=== PATIENT | female | born 1945 ===

== ENCOUNTER 2021-09-04 09:00 | Inpatient (IN) | payer OTHER ==
[~2021-09-04] VITALS: Ht 149.9 cm; Wt 66.7 kg
[2021-09-04] MEDS ORDERED: CRESTOR5 MG PO (10:55)
[2021-09-04] MEDS ORDERED: GLIPIZI PO (10:56)
[2021-09-04] MEDS ORDERED: JARDIANCE10 MG PO (10:56)
[2021-09-04] MEDS ORDERED: CARVEDILOL12.5 M1 PO (10:57)
[2021-09-04] MEDS ORDERED: VALSARTAN160 MG PO (10:57)
[2021-09-14] MEDS ORDERED: GLIPIZIDE ER2.5 MG PO (07:49)
[2021-09-14] MEDS ORDERED: MAXIMUM D3325 MCG (07:50)
[2021-09-14] MEDS ORDERED: AMLODIPINE BESYL5 MG (07:51)
[2021-09-15] MEDS ORDERED: ULTRAM50 MG PO (09:49)
== END 2021-09-15 11:21 | disposition home or self-care (01) | DRG 983 ==
LOC: SURH 09-07 09:00 → O/R 09-14 05:40 → SURG 09-14 05:40 → SURH 09-14 09:00 → SURG 09-14 11:17 → SURH 09-14 12:15 → SURG 09-15 11:21
PROVIDERS: ADMIT Surgery; ATTEND Surgery
PROC: 0QTS0ZZ Resection of Coccyx, Open Approach (ICD-10-PCS; principal; 2021-09-14 12:15)
DX: L72.0 Epidermal cyst (principal); Z20.822 Contact with and (suspected) exposure to COVID-19